=== PATIENT | female | born 1955 | race Caucasian/White ===

== ENCOUNTER → 2021-06-06 | Outpatient (CLI) | payer MEDICARE, OTHER ==
[~2021-06-06] MED LIST: ALPR0.5T7 PO; ATOR-2 PO; CARV6.2512 PO; DULO30CA2 PO; METO5TAB2 PO; MIDO10TA PO; NITR0.4T41 SL; OMEP40CA8 PO; OXYC1TAB18 PO; PREG75CA PO; SERT100T32 PO
[2021-06-06 16:13] LABS: BASOPHILS % (AUTO) 0 % (0-1); EOSINOPHILS % (AUTO) 2 % (1-7); LYMPHOCYTES % (AUTO) 10 % (22-44); MEAN CORPUSCULAR HEMOGLOBIN 34.5 pg (27.0-34.8); MEAN CORPUSCULAR HGB CONC 33.1 g/dL (32.4-35.8); MEAN PLATELET VOLUME 7.7 fL (7.4-10.4); MONOCYTES % (AUTO) 10 % (2-9); NEUTROPHILS % (AUTO) 78 % (42-75); PLATELET COUNT 192 x10^3/uL (130-400); RED BLOOD COUNT 3.31 x10^6/uL (3.82-5.3)
[2021-06-06 16:16] LABS: ALANINE AMINOTRANSFERASE 19 U/L (12-78); ALBUMIN 3.3 g/dL (3.4-5.0); ANION GAP 4 mmol/L (5-15); CALCIUM 8.7 mg/dL (8.5-10.1); CHLORIDE 95 mmol/L (98-107); CREATININE 2.63 mg/dL (0.55-1.02)
[2021-06-06 16:17] LABS: PROTHROMBIN TIME 10.7 Seconds (9.6-11.5)
[2021-06-06 16:19] LABS: ALKALINE PHOSPHATASE 93 U/L (45-117); BILIRUBIN,TOTAL 0.3 mg/dL (0.2-1.0); TOTAL PROTEIN 7.4 g/dL (6.4-8.2)
== END | disposition home or self-care (01) ==
LOC: STAR 15:08
PROVIDERS: ATTEND Surgery
DX: Z01.818 Encounter for other preprocedural examination (principal); I51.7 Cardiomegaly
CPT/HCPCS: 36415; 80053; 85025; 85610; 85730; 93005

== ENCOUNTER 2021-06-10 05:19 | Day surgery (SDC) | payer MEDICARE, OTHER ==
[~2021-06-10] VITALS: Ht 160 cm; Wt 56.4 kg
[2021-06-10] MEDS ORDERED: CHLORHEXIDINE 15 ML UDC ONE (06:42)
[2021-06-10] MEDS ORDERED: CHLORHEXIDINE 15 ML UDC PO ONE (07:00)
[2021-06-10] MEDS ORDERED: SODIUM CHLORIDE 0.9% 1,000 ML IV SCH (07:00)
[2021-06-10 07:06] LABS: ANION GAP 7 mmol/L (5-15); CALCIUM 9.3 mg/dL (8.5-10.1); CHLORIDE 95 mmol/L (98-107); CREATININE 2.96 mg/dL (0.55-1.02)
[2021-06-10] MEDS ORDERED: BUPIVACAINE/PF 0.5% ONE (10:07)
[2021-06-10] MEDS ORDERED: HEPARIN 5,000 UNITS/ML, 1ML ONE (10:08)
[2021-06-10] MEDS ORDERED: HEPARIN 1,000 UNITS/ML, 10ML ONE ×2 (10:08→14:34)
[2021-06-10] MEDS ORDERED: PAPAVERINE 30 MG/ML, 2ML ONE (10:08)
[2021-06-10] MEDS ORDERED: EPINEPHRINE 1 MG/ML, 1ML ONE (10:08)
[2021-06-10] MEDS ORDERED: THROMBIN 20,000 UNIT VIAL TP ONE (10:08)
[2021-06-10] MEDS ORDERED: SUCCINYLCHOLINE 20 MG/ML, 10ML ONE (10:31)
[2021-06-10] MEDS ORDERED: ROCURONIUM 10 MG/ML,10ML ONE (10:31)
[2021-06-10] MEDS ORDERED: ONDANSETRON 2MG/ML, 2ML ONE (10:31)
[2021-06-10] MEDS ORDERED: DEXAMETHASONE 4 MG/ML, 1ML ONE (10:31)
[2021-06-10] MEDS ORDERED: PROPOFOL 10 MG/ML, 20ML ONE (10:31)
[2021-06-10] MEDS ORDERED: CEFAZOLIN 1,000 MG ONE (10:31)
[2021-06-10] MEDS ORDERED: FENTANYL PF 250 MCG/5ML ONE (11:00)
[2021-06-10] MEDS ORDERED: EPHEDRINE 50 MG/ML, 1ML IVPush PRN (13:00)
[2021-06-10] MEDS ORDERED: OXYcodone 5 MG/5 ML ORAL.SOL UDC PO PRN (13:00)
[2021-06-10] MEDS ORDERED: hydrALAzine 20 MG/ML, 1ML IV PRN (13:00)
[2021-06-10] MEDS ORDERED: ONDANSETRON 2MG/ML, 2ML IVPush PRN (13:00)
[2021-06-10] MEDS ORDERED: METHOCARBAMOL 1,000 MG in DEXTROSE 5% 100 ML IV PRN (13:00)
[2021-06-10] MEDS ORDERED: HYDROmorphone 1 MG/ML, 1ML INJ IVPush PRN (13:00)
[2021-06-10] MEDS ORDERED: ACETAMINOPHEN 325 MG TABLET PO PRN (13:00)
[2021-06-10] MEDS ORDERED: PROMETHAZINE 25 MG/ML, 1ML IVPush PRN (13:00)
[2021-06-10] MEDS ORDERED: FENTANYL PF 100 MCG/2ML ONE ×2 (14:53→15:21)
[2021-06-10] MEDS: FENTANYL PF 100 MCG/2ML IV PRN ×4 (14:55→15:39)
[2021-06-10] MEDS ORDERED: OXYcodone 5 MG/5 ML ORAL.SOL UDC ONE ×2 (15:03→15:05)
[2021-06-10] MEDS ORDERED: ACETAMINOPHEN 650 MG/20.3 ML UDC ONE (15:05)
[2021-06-10] MEDS ORDERED: LABETALOL 5MG/ML, 20ML ONE (15:14)
[2021-06-10] MEDS: LABETALOL 5MG/ML, 20ML IV PRN ×3 (15:15→15:34)
== END 2021-06-10 17:06 | disposition home or self-care (01) ==
LOC: OUT 05:19 → EDIP 14:51 → UNDOADMOB 14:51
PROVIDERS: ATTEND Surgery
DX: T82.590A Other mechanical complication of surgically created arteriovenous fistula, initial encounter (principal); I13.2 Hypertensive heart and chronic kidney disease with heart failure and with stage 5 chronic kidney disease, or end stage renal disease; I50.9 Heart failure, unspecified; N18.6 End stage renal disease; I72.8 Aneurysm of other specified arteries; I48.91 Unspecified atrial fibrillation; I20.9 Angina pectoris, unspecified; I25.2 Old myocardial infarction; F17.290 Nicotine dependence, other tobacco product, uncomplicated; Z79.891 Long term (current) use of opiate analgesic; Z79.899 Other long term (current) drug therapy; Z88.8 Allergy status to other drugs, medicaments and biological substances; Z99.2 Dependence on renal dialysis; Y83.8 Other surgical procedures as the cause of abnormal reaction of the patient, or of later complication, without mention of misadventure at the time of the procedure
CPT/HCPCS: 35045; 36415; 36561; 36821; 37607; 77001; 80048; 88300; C1751; J0171; J0330; J0690; J1100; J1644; J2405; J2704; J3010; J7030; J2440